=== PATIENT | male | born 1990 | race African-American/Black ===

== ENCOUNTER 2016-11-16 02:49 | Emergency (ER) | payer MEDICAID ==
[~2016-11-16] VITALS: Ht 170.2 cm; Wt 70.5 kg
[2016-11-16 02:52] VITALS: Ht 170.2 cm; Wt 70.5 kg
[2016-11-16] MEDS ORDERED: IPRATROPIUM (NEB) 0.5 MG/2.5 ML AMP NEB STA (02:59)
[2016-11-16] MEDS ORDERED: ALBUTEROL 0.5% (NEB) 2.5 MG/0.5 ML AMP INH STA (02:59)
[2016-11-16] MEDS ORDERED: METHYLPREDNISOLONE 125 MG INJ IV STA (02:59)
[2016-11-16] MEDS ORDERED: ALBUTEROL 0.5% (NEB) 2.5 MG/0.5 ML AMP ONE (03:00)
[2016-11-16] MEDS ORDERED: IPRATROPIUM (NEB) 0.5 MG/2.5 ML AMP ONE (03:00)
--- NOTE | 2016-11-16 03:27 | RADRPT ---
PROCEDURE: CHEST - 1 VIEW CLINICAL INDICATION: 26-year-old male with shortness of breath and asthma. TECHNIQUE: A single frontal AP upright portable view of the chest was performed. The images were reviewed on a PACS workstation. COMPARISON: None. FINDINGS: The cardiomediastinal silhouette has a normal appearance. There is no evidence for an infiltrate. T he pulmonary vascularity is within normal limits. There is no evidence for pneumothorax or pneumomed iastinum. The osseous structures are intact. IMPRESSION: No evidence for active cardiopulmonary disease. .Giovanni Richter MD, MD Date Time Electronically viewed and signed by .Giovanni Richter MD, on 11/16/2016 03:27 .Marylu/
--- NOTE | 2016-11-16 03:49 | ERD ---
ER Documentation Chief Complaint Date/Time DATE: 11/16/16 TIME: 03:47 Chief Complaint cough x 2 days, sob today HPI 26-year-old male presents here in emergency department for complaints of cough and wheezing for 2 days. Patient has been having dry cough, does not cough up any phlegm or blood. Patient has history of asthma. Patient does not have any inhaler at home. Patient does not have any fever or chills. Patient denies any sick contacts. ROS All systems reviewed and are negative except as per history of present illness. Medications Home Meds Reported Medications [none] Unknown Strength No Conflict Check 11/16/16 Allergies Allergies: Coded Allergies: No Known Allergy (Unverified , 11/16/16) PMhx/Soc Medical and Surgical Hx: pt denies Medical Hx, pt denies Surgical Hx Hx Alcohol Use: No Hx Substance Use: No Hx Tobacco Use: No Smoking Status: Never smoker FmHx Family History: No coronary disease, No diabetes, No other Physical Exam Vitals Vital Signs Date Time Temp Pulse Resp B/P Pulse Ox O2 Delivery O2 Flow Rate FiO2 11/16/16 03:10 71 38 100 21 11/16/16 02:52 98.3 76 20 120/99 98 Physical Exam GENERAL: The patient is well developed and appropriate for usual state of health, in no apparent distress. CHEST: Diffuse wheezing bilaterally. There are no rales, crackles or rhonchi. HEART: Regular rate and rhythm. No murmurs, clicks, rubs or gallops. No S3 or S4. ABDOMEN: Soft, nontender and nondistended. Good bowel sounds. No rebound or guarding. No gross peritonitis. No gross organomegaly or masses. No Waller sign or McBurney point tenderness. BACK: No midline or flank tenderness. EXTREMITIES: Equal pulses bilaterally. There is no peripheral clubbing, cyanosis or edema. No focal swelling or erythema. Full range of motion. Grossly neurovascularly intact. NEURO: Alert and oriented. Cranial nerves 2-12 intact. Motor strength in all 4 extremities with 5/5 strength. Sensation grossly intact. Normal speech and gait. SKIN: There is no apparent rash or petechia. The skin is warm and dry. HEMATOLOGIC AND LYMPHATIC: There is no evidence of excessive bruising or lymphedema. No gross cervical, axillary, or inguinal lymphadenopathy. Results 24 hrs Current Medications Medications (Trade) Dose Ordered Sig/Sweta Route PRN Reason Start Time Stop Time Status Last Admin Dose Admin Ipratropium [place] (Atrovent 0.02% (Neb)) 0.5 mg ONCE STAT NEB 11/16/16 02:59 11/16/16 03:01 DC 11/16/16 03:09 Albuterol (Proventil 0.5% (Neb)) 10 mg ONCE STAT INH 11/16/16 02:59 11/16/16 03:01 DC 11/16/16 03:09 Methylprednisolone Sodium Succinate (Solu-Medrol) 125 mg ONCE STAT IV 11/16/16 02:59 11/16/16 03:01 DC 11/16/16 03:08 Breathing treatment of albuterol and Atrovent Solu-Medrol IV was given here in emergency department, after treatment, patient's lungs sounds are clear and patient's oxygenation is better. Patient verbalized feeling much better. PROCEDURE: CHEST - 1 VIEW CLINICAL INDICATION: 26-year-old male with shortness of breath and asthma. TECHNIQUE: A single frontal AP upright portable view of the chest was performed. The images were reviewed on a PACS workstation. COMPARISON: None. FINDINGS: The cardiomediastinal silhouette has a normal appearance. There is no evidence for an infiltrate. The pulmonary vascularity is within normal limits. There is no evidence for pneumothorax or pneumomediastinum. The osseous structures are intact. IMPRESSION: No evidence for active cardiopulmonary disease. .Giovanni Richter MD, MD Date Time Electronically viewed and signed by .Giovanni Richter MD, MD on 11/16/2016 03:27 .M/ CC: THERESE SANTACRUZ [employer] Procedures/MDM Medical Decision Making: Patient symptoms are most likely consistent with acute bronchitis with acute asthma exacerbation, which viral in origin. There is low suspicion for Pneumonia at this time since patients lungs sounds are clear, patient O2 saturation is normal and patient doesnt show any respiratory distress. Patients chest xray doesnt show infiltrates or any other cardiopulmonary emergencies at this time. There is low suspicion for other cardiopulmonary emergencies at this time such as CHF, Pulmonary Embolism, Pneumothorax, Aortic Aneurysm or any other cardiopulmonary emergencies at this time. There is low suspicion for sepsis. Patient appears well and is hemodynamically stable. Patient does not have any fever. Disposition: Home. Condition: Stable Prescriptions: Albuterol, Qvar, prednisone, guaifenesin DM, Zyrtec ibuprofen Instructions: Patient is advised to take medications as prescribed. Patient is advised to rest. Patient advised to increase fluid intake, do humidifier at home and if possible, do salt water gargles. Patient is advised that if symptoms are worse, shortness of breath, uncontrolled fever, stridor, vomiting, worst signs and symptoms to return to emergency department immediately. Otherwise, patient is advised to follow up with primary doctor in 5-7 days. Departure Diagnosis: Primary Impression: Acute bronchitis Bronchitis organism: unspecified organism Qualified Code: J20.9 - Acute bronchitis, unspecified organism Additional Impression: Acute asthma exacerbation Asthma severity: unspecified severity Qualified Code: J45.901 - Asthma with acute exacerbation, unspecified asthma severity Condition: Stable Patient Instructions: Asthma Medications, Bronchitis With Wheezing (Adult) Additional Instructions: Patient is advised to take medications as prescribed. Patient is advised to rest. Patient advised to increase fluid intake, do humidifier at home and if possible, do salt water gargles. Patient is advised that if symptoms are worse, shortness of breath, uncontrolled fever, stridor, vomiting, worst signs and symptoms to return to emergency department immediately. Otherwise, patient is advised to follow up with primary doctor in 5-7 days. THERESE SANTACRUZ NP Nov 16, 2016 03:49
[2016-11-16] MEDS ORDERED: BECL8.7A INH (04:31)
[2016-11-16] MEDS ORDERED: CETI10CA PO (04:31)
[2016-11-16] MEDS ORDERED: ALBU8.5H3 INH (04:31)
[2016-11-16] MEDS ORDERED: GUAI120S26 PO (04:31)
[2016-11-16] MEDS ORDERED: PRED50TA PO (04:31)
[2016-11-16 04:48] VITALS: PULSE 81; RESP 18
== END 2016-11-16 04:49 | disposition home or self-care (01) ==
LOC: FTE 02:49
DX: J20.9 Acute bronchitis, unspecified (principal); J45.901 Unspecified asthma with (acute) exacerbation
CPT/HCPCS: 71010; 94644; J2930; Z7610; 96374